=== PATIENT | male | born 2005 | race African-American/Black ===

== ENCOUNTER 2025-05-31 15:36 | Emergency (ER) | payer BC | END 2025-05-31 17:50 | disposition home or self-care (01) | LOC: NAV ERS 15:36 | DX: R05.9 Cough, unspecified (principal); R09.81 Nasal congestion; Z87.891 Personal history of nicotine dependence | CPT/HCPCS: 71046; 87428 ==

== ENCOUNTER 2025-06-15 10:08 | Emergency (ER) | payer BC ==
[2025-06-15] MEDS ORDERED: Lidocaine 1% (PF) 30 ML VIAL ONE (10:44)
[2025-06-15] MEDS ORDERED: Bacitracin 1 PK ONE (10:44)
== END 2025-06-15 11:20 | disposition home or self-care (01) ==
LOC: NAV ERS 10:08
DX: S91.312A Laceration without foreign body, left foot, initial encounter (principal); Z87.891 Personal history of nicotine dependence; W26.8XXA Contact with other sharp object(s), not elsewhere classified, initial encounter
CPT/HCPCS: 12001; 99282; J2003